=== PATIENT | male | born 1975 | race Caucasian/White ===

== ENCOUNTER 2020-08-10 11:14 | Outpatient (REF) | payer OTHER, SELFPAY | END 2020-08-10 11:15 | disposition home or self-care (01) | LOC: HO.LAB 11:14 | PROVIDERS: Visit Provider Internal Medicine | DX: Z20.822 Contact with and (suspected) exposure to COVID-19 (principal) | CPT/HCPCS: 36415; C9803; U0003 ==

== ENCOUNTER 2021-10-02 15:30 | Emergency (ER) | payer OTHER, SELFPAY ==
--- NOTE | ~2021-10-02 | CT_ITS ---
EXAMINATION: CT ANGIOGRAM CHEST CLINICAL INFORMATION: Sternal pain, sob, aneurysm, chest pain Patient Shielded? N COMPARISON: CT abdomen performed earlier today TECHNIQUE: Multiple axial images were obtained through the chest after the administration of 70 mL of Omnipaque 350 intravenous contrast. Extensive vascular post-processing including two-dimensional and three-dimensional reformatted images were created and reviewed on an independent workstation. This CT examination was performed using dose optimization techniques as appropriate, variously including the following: *Automated exposure control *Adjustment of mA and/or kV according to patient size (this includes techniques or standardized protocols for targeted exams where dose is matched to indication/reason for exam; i.e. extremities or head) *Use of iterative reconstruction technique Significant motion artifact still is present. DLP: 373 mGy-cm VASCULAR FINDINGS: Again redemonstrated is aneurysmal dilatation of the ascending thoracic aorta with maximum dimension in the transverse plane of 4.5 cm. When measurements are made perpendicular to a center line, maximal diameter is about 4.3 cm. At the sinuses of Valsalva, maximal dimension is 4.9 cm. No aortic dissection is seen. A normal three-vessel branching pattern of the arch is seen with widely patent great vessels. Although not carried out for evaluation of the pulmonary arteries, no significant pulmonary emboli are detected. The visualized portion of the abdominal aorta is unremarkable. NONVASCULAR FINDINGS: LUNGS: The lungs are clear with no evidence of inflammation or nodules. Bibasilar atelectasis is present. MEDIASTINUM: No mediastinal or hilar lymphadenopathy is seen. Visualized thyroid appears normal. PLEURA: There is no pleural effusion. No pleural mass or thickening. AXILLA: No lymphadenopathy. UPPER ABDOMEN: Unremarkable. See report CT abdomen performed earlier today OSSEOUS STRUCTURES: Unremarkable. CT/CT angio chest aorta IMPRESSION: Ascending aortic aneurysm with maximal dimension of the ascending aorta perpendicular to a center line of 4.3 cm with the diameter of 4.9 cm of the sinuses of Valsalva. No aortic dissection is seen. No intramural hematoma is seen. Maximal diameter for a patient of 48 years of age is 3.9 cm. Normal aortic diameters (in millimeters) Ascending aorta: 31+0.16 x age. Descending aorta: 21+0.16 x age. Reference: Scandinavian Cardiovascular J 2005; 40 (3): 175-178 Fleischner guidelines were followed.
--- NOTE | ~2021-10-02 | XR_ITS ---
EXAMINATION: XR CHEST CLINICAL INFORMATION: Shortness of breath. COMPARISON: None TECHNIQUE: Frontal view of the chest was obtained. FINDINGS: No significant abnormality is noted involving the heart, lungs, mediastinum, bony thorax or soft tissues. XR/XR chest 1V IMPRESSION: No acute cardiopulmonary process.
--- NOTE | ~2021-10-02 | CT_ITS ---
EXAMINATION: CT ABDOMEN AND PELVIS WITHOUT CONTRAST CLINICAL INFORMATION: Epigastric pain/right-sided chest pain with question of rib fracture COMPARISON: Chest radiograph 10/02/2021, head and neck CT 10/10/2012 TECHNIQUE: Multidetector volumetric imaging was performed from the superior aspect of the liver through the pubic symphysis. Sagittal and coronal reformatted images were obtained on the technologist's workstation. This CT examination was performed using dose optimization techniques as appropriate, variously including the following: *Automated exposure control *Adjustment of mA and/or kV according to patient size (this includes techniques or standardized protocols for targeted exams where dose is matched to indication/reason for exam; i.e. extremities or head) *Use of iterative reconstruction technique DLP: 736 mGy-cm FINDINGS: LUNG BASES: The ascending aorta is significantly dilated at 4.8 cm. Some minimal dependent atelectasis is seen. LIVER, GALLBLADDER, AND BILIARY TREE: The liver is normal in size, shape, and attenuation. No focal hepatic lesion or biliary ductal dilatation is present. Status post cholecystectomy PANCREAS: Unremarkable. SPLEEN: Unremarkable. ADRENAL GLANDS: Unremarkable. KIDNEYS AND URETERS: The kidneys are normal in size, shape, and attenuation. No hydronephrosis, hydroureter, or calculi seen. No perinephric stranding. BLADDER: The bladder is empty with a symmetrically thickened. There is a 3.5 mm punctate calcification in the anterior wall of the bladder GASTROINTESTINAL TRACT: The small and large bowel are unremarkable. Just anterior to the sigmoid colon is a 2.1 cm fatty mass with some calcification in its ho which most likely represents an old torsed epiploic appendage. The appendix is unremarkable. ABDOMINAL WALL: No significant hernia is appreciated. LYMPH NODES: No retroperitoneal lymphadenopathy. VASCULAR: The abdominal aorta is unremarkable without aneurysm. PELVIC VISCERA: Prostate is mildly enlarged measuring between 37 and 46 mL. The seminal vesicles appear normal. OSSEOUS STRUCTURES: Unremarkable. CT/CT abdomen pelvis wo con IMPRESSION: 1. Aneurysmal dilatation of the ascending thoracic aorta at 4.8 cm. Maximal dimension for a patient of this age is significantly less at 3.9 cm. 2. Punctate calcification in the bladder wall. This would be better evaluated with ultrasound when the bladder is full. 3. Mild BPH. 4. 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 Fleischner guidelines were followed. Normal aortic diameters (in millimeters) Ascending aorta: 31+0.16 x age. Descending aorta: 21+0.16 x age. Reference: [employer]avian Cardiovascular J 2006 Jahaira; 40 (3): 175-178
[2021-10-02 15:48] VITALS: BP 144/103; PULSE 88; RESP 20; TEMP 36.8; O2SAT 98
--- NOTE | 2021-10-02 15:55 | ED_ITS ---
HPI - Abdominal Pain General Chief Complaint: Abdominal Pain Stated Complaint: abd pain Time Seen by Provider: 10/02/21 15:55 Source: patient Mode of arrival: ambulatory Limitations: no limitations History of Present Illness HPI narrative: This is a 38-year-old male no significant medical history presenting to the emergency department with epigastric pain/sternal pain x2 months. Patient tells me that this has been an ongoing issue, it fluctuates in severity, he tells me it feels like someone is cutting into his epigastric region. He tells me is mainly localized to the epigastric region/ sternum and a little bit on the right. At times it radiates to his back. He reports the pain is 10/10. He tells me that this has been further evaluated in the past with an endoscopy he has had to within the past year they have all been within normal limits. He also mentions that he had his gallbladder removed in January 2021. He also notes that over the past week or so he has had increasing shortness of breath. He r eports intermittent chest pain over the past month or so worsening. Short episodes substernal, non radiating. He tells me he isn't having it right now. Particularly on exertion. He denies chest pain, nausea, vomiting, fevers, chills, weakness, lethargy, recent sick contacts. No hx of cardiac issues or HTN. No significant family cardiac hx. MD elicited complaint: abdominal pain Related Data Previous Rx's Medication Instructions Recorded morphine 15 mg immediate release 15 mg PO Q6H PRN #10 tab 10/02/21 tablet Allergies Allergy/AdvReac Type Severity Reaction Status Date / Time No Known Allergies Allergy Unverified 04/16/20 16:53 Review of Systems Review of Systems Constitutional : No Weight loss, No Fever, No Chills, No Fatigue, No Malaise ENT/Mouth : No sore throat, No Rhinorrhea Eyes: No Eye Pain, No Swelling, No Redness Cardiovascular : No Chest Pain, + SOB, + Dyspnea on Exertion, No Orthopnea, No Edema, No Palpitations Respiratory : No Cough, No Sputum, No Wheezing Gastrointestinal : No Nausea, No Vomiting, No Diarrhea, No Constipation, + abdominal Pain, No Hematochezia, No Melena Genitourinary : No Dysuria, No Urinary Frequency, No Hematuria, Musculoskeletal : No joint pain, No Myalgias, No Joint Swelling Skin : No Skin Lesions, No rash Neuro : No Weakness, No Numbness, No Dizziness, No Headache Psych : No Anxiety/Panic, No Depression All other systems reviewed and are negative Yes all other systems are reviewed and are negative [facility] Past Medical History Attestation statement: The following information was validated with the patient. Source: old records reviewed and nursing notes reviewed Social History Social History Advance Directives: No Advance Directives Information Provided: No Physical Exam ED Vital Signs: Vital Signs - 24 hr 10/02/21 15:48 10/02/21 18:00 Temperature 98.2 F Pulse Rate 88 81 Respiratory Rate 20 16 Blood Pressure 144/103 H 152/99 H Pulse Oximetry 98 97 BMI result Body Mass Index 0.3 Patient hypertensive. Appearance: Alert.? Oriented X3.? No acute distress.? Head: Normocephalic, atraumatic, no step-offs or deformities Eyes: Pupils equal, round and reactive to light.? ENT: Pharynx normal.? Neck: Normal inspection.? Neck supple.? CVS: Normal heart rate and rhythm.? Pulses normal.? Respiratory: No respiratory distress.? Breath sounds normal.? Abdomen: Soft and nontender.? Skin: Skin warm and dry.? Normal skin color.? Normal skin turgor.? Extremities: No lower extremity edema.? No calf ttp. 5/5 strength to bilateral upper and lower extremities Back: No midline tenderness, no C-spine tenderness, full range of motion, no CVA tenderness bilaterally Neuro: Oriented X 3.? No motor deficit.? No sensory deficit. CN 2-12 intact Course Course Course Narrative: [address] results w/ Dr. Mosher.Will reach out to thoracics. Reevaluation(s) Reevaluation #1: Labs wnl. Called thoracic [facility] to discuss CT results. They recommend speaking to vascular. Bassed off of CT I will order a CTA chest aorta to rule out disection. Time: 17:50 Reevaluation #2: Spoke to Dr. Collins. who tells me it is unlikley that the aortic dilation is causing patient pain. He recommends prompt follow up with outpatient cardio thoracic surgery at [facility]. Patient's labs within normal limits. Troponin negative. EKG nonischemic. Unlikely that this is ACS. BNP within normal limits unlikely CHF. At this time I will have patient follow-up with outpatient cardiothoracic surgery at [facility]. I will give him contact information for [facility]. Advised him to return with new or worsening symptoms. At this time I feel comfortable with discharge home with prompt cardiothoracic follow-up. Patient tells me his pain is much much better after morphine. He will be discharged home with a small script for morphine for pain control. I also advised him to follow-up with his PCP to follow-up on his high blood pressure. He tells me he will call Monday. You will also call Cardiothoracic surgery at [facility] Monday. I gave him very strict return precautions outlined when his discharge. Time: 20:06 MDM - Abdominal Pain MDM Narrative Medical decision making narrative: 1553 46-year-old male no known medical history presents with complaints of epigastric pain/ sternal pain x2 months. Fluctuating in severity at this time 10/10, sometimes radiates to back. Has had few endoscopies done over the past year which have been within normal limits. He also reports shortness of breath x1 week and intermittent substernal chest pain. Progressively worsening. Physical examination benign. Patient is lying on the stretcher with his right fist clenching over his sternum/epigastric region. Based off patient's history and physical examination unlikely that this is appendicitis, patient does not have his gallbladder on likely cholecystitis. Likely gastric ulcers, or gastritis. Plan at this time is to administer GI cocktail, obtain imaging, labs. Medical Records Attestation: I reviewed the patient's medical records. Lab Data Attestation: I reviewed the patient's lab results. Result diagrams: 10/02/21 17:28 10/02/21 16:43 Labs: Lab Results 10/02/21 10/02/21 10/02/21 Range/Units 16:39 16:39 16:43 WBC (4.8-10.8) X10*3/uL RBC (4.60-5.80) X10*6/uL Hgb (14.0-18.0) g/dl Hct (42.0-52.0) % MCV (80.0-98.0) fL MCH (27.0-33.0) pg MCHC (31.0-36.0) g/dl RDW (11.0-16.0) % Plt Count (160-400) X10*3/uL MPV (9.4-12.4) fL Immature Gran % (Auto) (0.0-0.4) % Neut % (Auto) (45-73) % Lymph % (Auto) (20-40) % [place] % (Auto) (2-11) % Eos % (Auto) (0-4) % Baso % (Auto) (0-2) % Lymph # (Auto) (1.2-4.9) X10*3/uL [place] # (Auto) (0.1-1.2) X10*3/uL Eos # (Auto) (0.0-0.4) X10*3/uL Baso # (Auto) (0.0-0.2) X10*3/uL Abs Immat Gran (auto) (0.00-0.03) X10*3/uL Absolute Neuts (auto) (2.0-8.3) x10*3/uL Absolute Nucleated RBC (0.0-0.012) X10*3/uL Nucleated RBC % (auto) (0.0-0.2) /100WBC Sodium 139 (135-145) mmol/L Potassium 4.2 (3.3-5.1) mmol/L Chloride 105 (96-108) mmol/L Carbon Dioxide 26 (22-29) mmol/L Anion Gap 12 (12-20) BUN 15 (9-16) mg/dL Creatinine 1.16 (0.5-1.4) mg/dL Estim Creat Clear Calc 106.9 Estimated GFR > 60 Random Glucose 100 (60-115) mg/dL Calcium 10.2 (8.4-10.2) mg/dL Magnesium 2.0 (1.6-2.6) mg/dL Total Bilirubin 0.3 (0.0-1.0) mg/dL AST 19 (5-37) U/L ALT 28 (0-40) U/L Alkaline Phosphatase 60 (39-117) U/L Troponin I High Sens (<3.5-35.0) ng/L B-Natriuretic Peptide (<100) pg/mL Total Protein 7.1 (6.5-8.0) g/dL Albumin 4.6 (3.5-5.0) g/dL Urine Color YELLOW Urine Appearance CLEAR Urine pH 6.0 (5.0-8.0) Ur Specific [place] 1.025 (1.005-1.025) Urine Protein NEG (NEG-TRACE) MG/DL Urine Glucose (UA) NEG (NEG) MG/DL Urine Ketones NEG (NEG) MG/DL Urine Blood NEG (NEG) Urine Nitrite NEG (NEG) Ur Leukocyte Esterase NEG (NEG) COVID-19 (ASHISH) Negative (Negative) COVID-19 Clin Com See Note 10/02/21 10/02/21 Range/Units 16:43 17:28 WBC 10.0 (4.8-10.8) X10*3/uL RBC 5.48 (4.60-5.80) X10*6/uL Hgb 15.6 (14.0-18.0) g/dl Hct 45.1 (42.0-52.0) % MCV 82.3 (80.0-98.0) fL MCH 28.5 (27.0-33.0) pg MCHC 34.6 (31.0-36.0) g/dl RDW 13.0 (11.0-16.0) % Plt Count 267 (160-400) X10*3/uL MPV 8.1 L (9.4-12.4) fL Immature Gran % (Auto) 0.5 H (0.0-0.4) % Neut % (Auto) 60.8 (45-73) % Lymph % (Auto) 27.1 (20-40) % [place] % (Auto) 8.5 (2-11) % Eos % (Auto) 2.2 (0-4) % Baso % (Auto) 0.9 (0-2) % Lymph # (Auto) 2.7 (1.2-4.9) X10*3/uL [place] # (Auto) 0.9 (0.1-1.2) X10*3/uL Eos # (Auto) 0.2 (0.0-0.4) X10*3/uL Baso # (Auto) 0.1 (0.0-0.2) X10*3/uL Abs Immat Gran (auto) 0.05 H (0.00-0.03) X10*3/uL Absolute Neuts (auto) 6.0 (2.0-8.3) x10*3/uL Absolute Nucleated RBC 0.000 (0.0-0.012) X10*3/uL Nucleated RBC % (auto) 0.0 (0.0-0.2) /100WBC Sodium (135-145) mmol/L Potassium (3.3-5.1) mmol/L Chloride (96-108) mmol/L Carbon Dioxide (22-29) mmol/L Anion Gap (12-20) BUN (9-16) mg/dL Creatinine (0.5-1.4) mg/dL Estim Creat Clear Calc Estimated GFR Random Glucose (60-115) mg/dL Calcium (8.4-10.2) mg/dL Magnesium (1.6-2.6) mg/dL Total Bilirubin (0.0-1.0) mg/dL AST (5-37) U/L ALT (0-40) U/L Alkaline Phosphatase (39-117) U/L Troponin I High Sens < 3.5 (<3.5-35.0) ng/L B-Natriuretic Peptide < 10 (<100) pg/mL Total Protein (6.5-8.0) g/dL Albumin (3.5-5.0) g/dL Urine Color Urine Appearance Urine pH (5.0-8.0) Ur Specific [place] (1.005-1.025) Urine Protein (NEG-TRACE) MG/DL Urine Glucose (UA) (NEG) MG/DL Urine Ketones (NEG) MG/DL Urine Blood (NEG) Urine Nitrite (NEG) Ur Leukocyte Esterase (NEG) COVID-19 (ASHISH) (Negative) COVID-19 Clin Com ECG Data Attestation: I personally reviewed and interpreted this ECG as follows: ECG interpretation date: 10/02/21 ECG interpretation time: 17:54 Prior ECG tracings: not available for review Interpretation: Ventricular rate of 79. OK normal, QRS normal. QT/QTC normal. EKG shows normal sinus rhythm. No ST elevations or inversions concerning for ischemia. No previous EKGs to compare with. Critical Care Time Critical Care Time Critical Care Time: Yes Total Critical Care Time: 35 Attestation: I attest to this time spent taking care of the patient obtaining history, physical, reviewing labs, imaging speaking to Thoracics, speaking to vascular, speaking to my attending. Discharge Plan Discharge Clinical Impression: Shortness of breath Thoracic aortic aneurysm Qualifiers: Presence of rupture: without rupture Qualified Code(s): I71.2 - Thoracic aortic aneurysm, without rupture Benign prostatic hyperplasia Qualifiers: Lower urinary tract symptom presence: symptoms absent Qualified Code(s): N40.0 - Benign prostatic hyperplasia without lower urinary tract symptoms Patient Disposition: Home, Self-Care Instructions: Epigastric Pain (ED), Shortness of Breath (ED) Additional Instructions: Take your medications as prescribed. Follow-up with your primary care provider on Monday, please discuss your high blood pressure reading with them. Check your blood pressure Monday, Monday and Monday, write them down ensure them with their PCP. Also please call [facility] cardiac surgery Monday and schedule an appointment as soon as possible. Return to the emergency department with new or worsening symptoms. Such as chest pain, trauma to the abdomen/chest, shortness of breath, severe pain, back pain, nausea, vomiting, fevers, chills, altered mental status, confusion, difficulties with ambulation, weakness. In case of emergency call 911 CT/CT abdomen pelvis wo con IMPRESSION: 1.? Aneurysmal dilatation of the ascending thoracic aorta at 4.8 cm. Maximal dimension for a patient of this age is significantly less at 3.9 cm.? 2.? Punctate calcification in the bladder wall. This would be better evaluated with ultrasound when the bladder is full. 3.? Mild BPH. 4.? 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 ? Fleischner guidelines were followed. ? Normal aortic diameters (in millimeters)? ? Ascending aorta: 31+0.16 x age.? Descending aorta: 21+0.16 x age.? Reference: Scandinavian Cardiovascular J 2006 December; 40 (3): 175-178 CT/CT angio chest aorta IMPRESSION: Ascending aortic aneurysm with maximal dimension of the ascending aorta perpendicular to a center line of 4.3 cm with the diameter of 4.9 cm of the sinuses of Valsalva. No aortic dissection is seen. No intramural hematoma is seen. Maximal diameter for a patient of 48 years of age is 3.9 cm. ? Normal aortic diameters (in millimeters)? ? Ascending aorta: 31+0.16 x age.? Descending aorta: 21+0.16 x age.? Reference: Scandinavian Cardiovascular J 2005; 40 (3): 175-178 ? Fleischner guidelines were followed. [facility] Cardiac Surgery [address] [place] [address] Dr. LAW, [place] [address] please call and schedule an appointment as soon as possible. For evaluation of ascending thoracic aneurysm I sent morphine to your pharmacy, please do not take this while driving or operating any machinery. This is a controlled substance, it can cause addiction. I attest that I have reviewed patients [employer], and at the time prescribing the patient a controlled substance is appropriate based off of patients diagnosis and treatment plan. Prescriptions: New morphine 15 mg tablet 15 mg PO Q6H PRN (Reason: pain) Qty: 10 0RF Rx Instructions: Patient can partially filled this prescription upon request. Referrals: Physician,Unknown J [Primary Care Provider] - 2 days Stand Alone Forms: Work/School Release
[2021-10-02] MEDS: Magnesium Hydrox/Alum Hydrox 30 ML ORAL.SUSP PO (16:18)
[2021-10-02] MEDS: PHENobarb/Hyoscy/Atropine/Scop 10 ML ELIXIR PO (16:19)
[2021-10-02 16:51] LABS: Appearance Urine CLEAR; Color Urine YELLOW; Glucose Urine UA NEG (NEG); Leukocyte Esterase Urine NEG (NEG); Nitrite Urine NEG (NEG); Specific Gravity - Urine 1.025 (1.005-1.025); Urine Blood NEG (NEG); Urine Ketones NEG (NEG); Urine Protein NEG (NEG-TRACE)
[2021-10-02 17:12] LABS: Alanine Aminotransferase 28 U/L (0-40); Albumin Level 4.6 g/dL (3.5-5.0); Alkaline Phosphatase 60 U/L (39-117); Anion Gap 12 (12-20); Aspartate Amino Transferase 19 U/L (5-37); Bilirubin Total 0.3 mg/dL (0.0-1.0); Blood Urea Nitrogen 15 mg/dL (9-16); Calcium 10.2 mg/dL (8.4-10.2); Carbon Dioxide 26 mmol/L (22-29); Chloride 105 mmol/L (96-108); Creatinine Clr Calc Pharmacy 106.9; Estimated Glomerular Filt Rate > 60; Glucose Random 100 mg/dL (60-115); Potassium 4.2 mmol/L (3.3-5.1); Sodium 139 mmol/L (135-145); Total Protein 7.1 g/dL (6.5-8.0)
[2021-10-02 17:18] LABS: B Type Natriuretic Peptide < 10 pg/mL (<100)
[2021-10-02 17:20] LABS: COVID-19 Test Negative (Negative); IDNOW Serial# 55D5AD1C
[2021-10-02 17:32] LABS: Basophils Absolute Auto 0.1 X10*3/uL (0.0-0.2); Basophils Percent Auto 0.9 % (0-2); Eosinophils Absolute Auto 0.2 X10*3/uL (0.0-0.4); Eosinophils Percent Auto 2.2 % (0-4); Hematocrit 45.1 % (42.0-52.0); Hemoglobin 15.6 g/dl (14.0-18.0); Imm Gran Abs Auto 0.05 X10*3/uL (0.00-0.03); Imm Gran Pct Auto 0.5 % (0.0-0.4); Lymphocytes Absolute Auto 2.7 X10*3/uL (1.2-4.9); Lymphocytes Percent Auto 27.1 % (20-40); Mean Corpuscular HGB Conc 34.6 g/dl (31.0-36.0); Mean Corpuscular Hemoglobin 28.5 pg (27.0-33.0); Mean Corpuscular Volume 82.3 fL (80.0-98.0); Mean Platelet Volume 8.1 fL (9.4-12.4); Monocytes Absolute Auto 0.9 X10*3/uL (0.1-1.2); Monocytes Percent Auto 8.5 % (2-11); Neutrophils Percent Auto 60.8 % (45-73); Platelet Count 267 X10*3/uL (160-400); Red Blood Count 5.48 X10*6/uL (4.60-5.80)
--- NOTE | 2021-10-02 17:42 | ECG_ITS ---
Test Reason : ABDOMINAL PAIN Blood Pressure : / mmHG Vent. Rate : 079 BPM Atrial Rate : 079 BPM P-R Int : 202 ms QRS Dur : 090 ms QT Int : 360 ms P-R-T Axes : 039 086 056 degrees QTc Int : 412 ms Normal sinus rhythm Normal ECG No previous ECGs available Referred By: Chance Levy Electronically Signed By:Clifford Baxter
[2021-10-02 18:00] VITALS: BP 152/99; PULSE 81; RESP 16; O2SAT 97
[2021-10-02] MEDS: Morphine Sulfate 4 MG/ML CARTRIDGE IVPUSH (18:03)
[2021-10-02 18:04] LABS: Troponin-I High Sensitivity < 3.5 ng/L (<3.5-35.0)
[2021-10-02] MEDS: iohexoL 350 MG/ML 100 ML INFUS..BTL IV (19:03)
--- NOTE | 2021-10-02 20:26 | PC.NURSE ---
I assumed care of this pt at 1900. I discharged the pt at this time - I met him initially while D/C'g him./ he verbalized an understanding of all DC orders and ambulated out of the ED independently and with steady gait.
== END 2021-10-02 20:27 | disposition home or self-care (01) ==
PROVIDERS: Physician Assistant; Emergency Provider Emergency Medicine Emergency Medical Services
DX: I71.2 Thoracic aortic aneurysm, without rupture (principal); R06.02 Shortness of breath; N40.0 Benign prostatic hyperplasia without lower urinary tract symptoms; R10.13 Epigastric pain; Z90.49 Acquired absence of other specified parts of digestive tract; Z20.822 Contact with and (suspected) exposure to COVID-19
CPT/HCPCS: 71045; 71275; 74176; 80053; 81003; 83735; 83880; 84484; 85025; 87635; 93005; 96374; 99284; 99291; J2270; Q9967